=== PATIENT | female | born 1995 | race Hispanic/Latino ===

== ENCOUNTER 2020-01-24 18:30 | Observation (INO) | payer BC, MEDICAID ==
[~2020-01-24] VITALS: Ht 154.9 cm; Wt 82.6 kg
[2020-01-24 19:37] LABS: APPEARANCE,URINE Cloudy (CLEAR); BILIRUBIN,URINE Negative (NEGATIVE); COLOR,URINE Yellow (YELLOW); GLUCOSE, URINE (UA) Negative (NEGATIVE); KETONES,URINE Negative (NEGATIVE); LEUKOCYTE ESTERASE ,URINE Small (NEGATIVE); NITRATE,URINE Negative (NEGATIVE); OCCULT BLOOD,URINE Negative (NEGATIVE); PH,URINE 6.5 (5.0-8.0); PROTEIN,URINE Negative (NEGATIVE)
[2020-01-24 19:45] LABS: AMPHET/METH SCREEN,URINE NEGATIVE (NEGATIVE); BARBITURATE SCREEN, URINE NEGATIVE (NEGATIVE); BENZODIAZEPINES SCREEN,URINE NEGATIVE (NEGATIVE); CANNABINOID SCREEN,URINE NEGATIVE (NEGATIVE); COCAINE SCREEN,URINE NEGATIVE (NEGATIVE); OPIATE SCREEN,URINE NEGATIVE (NEGATIVE); PHENCYCLIDINE SCREEN,URINE NEGATIVE (NEGATIVE)
[2020-01-24 19:49] LABS: BACTERIA,URINE Few /HPF (None Seen); RBC,URINE 0-1 /HPF (0-1); SQUAMOUS EPITHELIAL CELL,UR Few /HPF (0-2)
[2020-01-24 19:51] LABS: AMORPHOUS SEDIMENT,UR Few /LPF (None Seen)
[2020-01-24 19:54] VITALS: BP 132/84
[2020-01-24] MEDS ORDERED: LACTATED RINGERS 1000ML IV PRN (20:00)
== END 2020-01-24 21:05 | disposition home or self-care (01) ==
LOC: EDH 18:30 → LDH 18:40
DX: O42.913 Preterm premature rupture of membranes, unspecified as to length of time between rupture and onset of labor, third trimester (principal); Z3A.35 35 weeks gestation of pregnancy
CPT/HCPCS: 80305; 81001; G0378 ×2; 96360

== ENCOUNTER 2020-02-18 04:53 | Inpatient (IN) | payer BC, MEDICAID ==
[~2020-02-18] VITALS: Ht 154.9 cm; Wt 85.3 kg
[2020-02-18] MEDS ORDERED: LACTATED RINGERS 1000ML IV SCH (05:15)
[2020-02-18 05:24] LABS: BILIRUBIN,URINE Negative (NEGATIVE); COLOR,URINE Yellow (YELLOW); GLUCOSE, URINE (UA) Negative (NEGATIVE); KETONES,URINE Negative (NEGATIVE); LEUKOCYTE ESTERASE ,URINE Moderate (NEGATIVE); NITRATE,URINE Negative (NEGATIVE); OCCULT BLOOD,URINE Negative (NEGATIVE); PH,URINE 7.5 (5.0-8.0); PROTEIN,URINE Trace mg/dL (NEGATIVE)
[2020-02-18 05:25] LABS: APPEARANCE,URINE CLOUDY (CLEAR)
[2020-02-18 05:31] LABS: BACTERIA,URINE Few /HPF (None Seen); RBC,URINE None Seen /HPF (0-1); SQUAMOUS EPITHELIAL CELL,UR Moderate /HPF (0-2)
[2020-02-18] MEDS ORDERED: LACTATED RINGERS 1000ML 1,000 ML IV PRN (05:36)
[2020-02-18 05:45] LABS: HEMATOCRIT 33.9 % (36-48); MEAN CORPUSCULAR HEMOGLOBIN 23.8 pg (27.0-33.0); MEAN CORPUSCULAR VOLUME 76.7 fL (79-99); PLATELET COUNT (AUTO) 440 K/uL (130-400); RED BLOOD CELL COUNT(AUTO) 4.42 MIL/uL (4.00-5.50); RED CELL DISTRIBUTION WIDTH 15.2 % (11.0-15.5); WHITE BLOOD COUNT (AUTO) 11.4 K/uL (4.8-10.8)
[2020-02-18] MEDS ORDERED: MEPERIDINE-PF 50 MG/ML SYG IVP ONE (05:45)
[2020-02-18] MEDS ORDERED: ROPIVACAINE 0.2% 100ML VIAL 100 ML EP SCH (05:45)
[2020-02-18] MEDS ORDERED: OXYTOCIN-LR 20 UNITS/1000 ML 1,000 ML IV SCH ×2 (05:45→18:45)
[2020-02-18] MEDS ORDERED: LACTATED RINGERS 500 ML 500 ML IV PRN (05:45)
[2020-02-18] MEDS ORDERED: NALOXONE HCL 0.4 MG/1 ML ML IV PRN (05:45)
[2020-02-18] MEDS ORDERED: EPHEDRINE SULFATE 50 MG/ML AMPULE IVP PRN (05:45)
[2020-02-18] MEDS ORDERED: PROMETHAZINE HCL 25 MG/ML 1ML AMPULE IM SCH (05:45)
[2020-02-18 06:48] LABS: AMPHET/METH SCREEN,URINE NEGATIVE (NEGATIVE); BARBITURATE SCREEN, URINE NEGATIVE (NEGATIVE); BENZODIAZEPINES SCREEN,URINE NEGATIVE (NEGATIVE); CANNABINOID SCREEN,URINE NEGATIVE (NEGATIVE); COCAINE SCREEN,URINE NEGATIVE (NEGATIVE); OPIATE SCREEN,URINE NEGATIVE (NEGATIVE); PHENCYCLIDINE SCREEN,URINE NEGATIVE (NEGATIVE)
[2020-02-18] MEDS ORDERED: PROMETHAZINE HCL 25 MG/ML 1ML AMPULE IM PRN (09:00)
[2020-02-18] MEDS ORDERED: MEPERIDINE-PF 50 MG/ML SYG IVP PRN (09:00)
[2020-02-18 12:27] LABS: RAPID PLASMA REAGIN NONREACTIVE (NONREACTIVE)
[2020-02-18] MEDS ORDERED: OXYTOCIN 10 USP UNITS/ML 20 UNIT in LACTATED RINGERS 1000ML 1,000 ML IV SCH (14:15)
[2020-02-18] MEDS ORDERED: METHYLERGONOVINE MALEATE 0.2 MG/1 ML ML ONE (18:20)
[2020-02-18] MEDS ORDERED: MISOPROSTOL 200 MCG TABLET ONE (18:21)
[2020-02-18] MEDS ORDERED: BENZOCAINE/LANOLIN/ALOE VERA 60 ML AEROSOL TP PRN (18:45)
[2020-02-18] MEDS ORDERED: DIPH,PERTUSS(ACELL),TET VAC/PF 0.5 ML VIAL IM PRN (18:45)
[2020-02-18] MEDS ORDERED: ACETAMINOPHEN-CODEINE 300/30MG TAB PO PRN (18:45)
[2020-02-18] MEDS ORDERED: ACETAMINOPHEN 325 MG TAB PO PRN (18:45)
[2020-02-18] MEDS ORDERED: MEASLES/MUMPS/RUBELLA VACCINE, LIVE 0.5 ML/VIAL SQ PRN (18:45)
[2020-02-18] MEDS ORDERED: LANOLIN 30GM OINTMENT TP PRN (18:45)
[2020-02-18] MEDS: DOCUSATE SODIUM 100 MG CAP PO SCH ×2 (20:49→21:36)
[2020-02-18] MEDS: CLINDAMYCIN 900 MG/D5% WATER 50 ML IV SCH (20:50)
[2020-02-18 21:10] VITALS: BP 143/75
[2020-02-18] MEDS ORDERED: PREN-66 PO (21:52)
[2020-02-18] MEDS: WITCH HAZEL 1 PAD TP PRN (22:05)
[2020-02-18] MEDS: GENTAMICIN 120 MG IN 100ML NS 100 ML IV SCH (22:06)
[2020-02-18 23:44] VITALS: BP 141/73
[2020-02-19 03:42] VITALS: BP 125/80
[2020-02-19] MEDS: CLINDAMYCIN 900 MG/D5% WATER 50 ML IV SCH ×3 (05:07→20:31)
[2020-02-19] MEDS: GENTAMICIN 120 MG IN 100ML NS 100 ML IV SCH ×3 (05:51→21:50)
[2020-02-19] MEDS: IBUPROFEN 600 MG TABLET PO PRN ×2 (05:58→18:55)
[2020-02-19 06:43] LABS: CREATININE 0.8 mg/dL (0.5-1.5)
[2020-02-19 07:09] VITALS: BP 107/56
[2020-02-19] MEDS: DOCUSATE SODIUM 100 MG CAP PO SCH ×2 (09:11→20:31)
[2020-02-19 09:12] LABS: HEPATITIS Bs ANTIGEN SCREEN P Negative (Negative)
--- NOTE | 2020-02-19 10:33 | NUR ---
[facility] met with pt who states she and noemí Rubalcava [phone], live with her parents (mother Richa Dudley). This is first child for couple daughter Deyanira Rubalcava. Pt is independent, does not work, has [place], and [place]. FOB works at [employer] and is independent as well. Couple has basic items for baby and a car seat. They have selected a internal medicine veterinary technician in [place] to follow baby after dc. Pt reports she found out she was at 21 weeks because she had no signs or symptoms or and was told she would have trouble conceiving because she had PCOD- polycystic Ovary Disease. Pt came to ER with abdominal pain and found out she was . Pt started care right after. Pt denies any hx of abuse, substance abuse, domestic violence, legal or CPS issues
[2020-02-19 11:19] VITALS: BP 119/68
[2020-02-19] MEDS ORDERED: GENTAMICIN 80 MG/NS 100 ML PB 0 ML IV ONE (13:52)
[2020-02-19 16:43] VITALS: BP 122/75
[2020-02-19 19:12] VITALS: BP 122/68
[2020-02-19 23:10] VITALS: BP 125/68
[2020-02-20 03:53] VITALS: BP 122/68
[2020-02-20] MEDS: IBUPROFEN 600 MG TABLET PO PRN ×2 (04:19→09:24)
[2020-02-20] MEDS: CLINDAMYCIN 900 MG/D5% WATER 50 ML IV SCH ×2 (04:31→12:43)
[2020-02-20] MEDS: GENTAMICIN 120 MG IN 100ML NS 100 ML IV SCH (06:03)
[2020-02-20 07:06] LABS: BASOPHILS % (AUTO) 0.4 % (0.0-5.0); EOSINOPHILS % (AUTO) 1.7 % (0.0-8.0); HEMATOCRIT 26.8 % (36-48); LYMPHOCYTES % (AUTO) 25.1 % (21.0-51.0); MEAN CORPUSCULAR HEMOGLOBIN 23.7 pg (27.0-33.0); MEAN CORPUSCULAR VOLUME 76.6 fL (79-99); MONOCYTES % (AUTO) 6.4 % (3.0-13.0); NEUTROPHILS % (AUTO) 65.5 % (40.0-77.0); PLATELET COUNT (AUTO) 331 K/uL (130-400); RED CELL DISTRIBUTION WIDTH 15.8 % (11.0-15.5); WHITE BLOOD COUNT (AUTO) 13.7 K/uL (4.8-10.8)
[2020-02-20 07:46] VITALS: BP 109/83
[2020-02-20] MEDS: WITCH HAZEL 1 PAD TP PRN (08:30)
[2020-02-20] MEDS: DOCUSATE SODIUM 100 MG CAP PO SCH (09:23)
[2020-02-20 11:30] VITALS: BP 130/78
--- NOTE | 2020-02-20 13:30 | NUR ---
DR. MORGAN ROUNDED ON PATIENT AND DISCHARGED PATIENT TO HOME. PIV PATENT AND INFUSING LAST DOSE OF CLEOCIN. IV TO BE REMOVED AFTER COMPLETION.
[2020-02-20 16:13] VITALS: BP 136/79
--- NOTE | 2020-02-20 17:05 | NUR ---
PATIENT WAS TAKEN VIA W/C HOLDING BABY IN ARMS TO FAMILYT VEHICLE. PATIENT IS STABLE AND DENIES PAIN.
== END 2020-02-20 17:05 | disposition home or self-care (01) | DRG 807 ==
LOC: EDH 04:53 → LDH 04:54 → OBSVTOIN 04:54 → WSH 21:16
PROC: 10907ZC Drainage of Amniotic Fluid, Therapeutic from Products of Conception, Via Natural or Artificial Opening (ICD-10-PCS; principal; 2020-02-18)
PROC: 10E0XZZ Delivery of Products of Conception, External Approach (ICD-10-PCS; 2020-02-18)
PROC: 0HQ9XZZ Repair Perineum Skin, External Approach (ICD-10-PCS; 2020-02-18)
PROC: 3E0R3BZ Introduction of Anesthetic Agent into Spinal Canal, Percutaneous Approach (ICD-10-PCS; 2020-02-18)
PROC: 00HU33Z Insertion of Infusion Device into Spinal Canal, Percutaneous Approach (ICD-10-PCS; 2020-02-18)
PROC: 3E0234Z Introduction of Serum, Toxoid and Vaccine into Muscle, Percutaneous Approach (ICD-10-PCS; 2020-02-18)
PROC: 3E0134Z Introduction of Serum, Toxoid and Vaccine into Subcutaneous Tissue, Percutaneous Approach (ICD-10-PCS; 2020-02-18)
PROC: 3E0P7VZ Introduction of Hormone into Female Reproductive, Via Natural or Artificial Opening (ICD-10-PCS; 2020-02-18)
DX: O62.2 Other uterine inertia (principal); Z37.0 Single live birth; O70.0 First degree perineal laceration during delivery; Z3A.39 39 weeks gestation of pregnancy; Z23 Encounter for immunization
CPT/HCPCS: 36415; 80170; 80305; 81001; 82565; 85025; 85027; 86592; 86701; 86850; 86900; 86901; 87088; 87340; 87390; 90715; G0378; J1580; J2175; J2210; J2550; J2590; J2795; J3490

== ENCOUNTER 2021-02-27 15:42 | Observation (INO) | payer BC, MEDICAID ==
[~2021-02-27] VITALS: Ht 152.4 cm; Wt 81.6 kg
[~2021-02-27 15:42] MED LIST: PREN-66 PO
[2021-02-27 17:22] LABS: APPEARANCE,URINE Cloudy (CLEAR); BILIRUBIN,URINE Negative (NEGATIVE); COLOR,URINE Yellow (YELLOW); GLUCOSE, URINE (UA) Negative (NEGATIVE); KETONES,URINE Negative (NEGATIVE); LEUKOCYTE ESTERASE ,URINE Trace (NEGATIVE); NITRATE,URINE Negative (NEGATIVE); OCCULT BLOOD,URINE Negative (NEGATIVE); PH,URINE 6.5 (5.0-8.0); PROTEIN,URINE Negative (NEGATIVE)
[2021-02-27 17:29] LABS: RBC,URINE 0-1 /HPF (0-1); WBC,URINE 0-1 /HPF (0-1)
[2021-02-27 17:30] LABS: AMORPHOUS SEDIMENT,UR Rare /LPF (None Seen); BACTERIA,URINE Few /HPF (None Seen); MUCUS,URINE Rare LPF (None Seen); SQUAMOUS EPITHELIAL CELL,UR Few /HPF (0-2)
[2021-05-05] MEDS ORDERED: PNV#1COM14 PO (19:39)
[2021-05-09] MEDS ORDERED: CLIN-141 PO (21:01)
== END 2021-02-27 17:57 | disposition home or self-care (01) ==
LOC: EDH 15:42 → LDH 15:43
PROVIDERS: ADMIT Specialist; ATTEND Specialist
DX: O42.913 Preterm premature rupture of membranes, unspecified as to length of time between rupture and onset of labor, third trimester (principal); Z3A.28 28 weeks gestation of pregnancy
CPT/HCPCS: 59025; 76815; 81001; 99283; G0378 ×2

== ENCOUNTER 2021-04-28 10:29 | Observation (INO) | payer BC, MEDICAID ==
[~2021-04-28] VITALS: Ht 162.6 cm; Wt 83.5 kg
[2021-04-28 10:31] VITALS: BP 119/78
[2021-04-28 11:11] LABS: APPEARANCE,URINE Cloudy (CLEAR); BILIRUBIN,URINE Small (NEGATIVE); COLOR,URINE Dark Yellow (YELLOW); GLUCOSE, URINE (UA) Negative (NEGATIVE); KETONES,URINE 40 mg/dL (NEGATIVE); LEUKOCYTE ESTERASE ,URINE Small (NEGATIVE); NITRATE,URINE Negative (NEGATIVE); OCCULT BLOOD,URINE Negative (NEGATIVE); PROTEIN,URINE POS 1+ mg/dL (NEGATIVE)
[2021-04-28 11:43] LABS: BACTERIA,URINE Rare /HPF (None Seen); RBC,URINE 0-1 /HPF (0-1)
[2021-04-28 11:44] LABS: SQUAMOUS EPITHELIAL CELL,UR Moderate /HPF (0-2)
[2021-04-28 11:46] VITALS: BP 125/77
[2021-04-28] MEDS ORDERED: LACTATED RINGERS 1000ML 1,000 ML IV PRN (12:00)
[2021-05-05] MEDS ORDERED: PNV#1COM14 PO (19:39)
== END 2021-04-28 12:50 | disposition home or self-care (01) ==
LOC: EDH 10:29 → LDH 10:30
PROVIDERS: ADMIT Specialist; ATTEND Specialist
DX: O62.9 Abnormality of forces of labor, unspecified (principal); Z3A.37 37 weeks gestation of pregnancy
CPT/HCPCS: 81001; 96360; G0378 ×2; J7120

== ENCOUNTER 2021-05-09 14:00 | Emergency (ER) | payer BC, MEDICAID ==
[~2021-05-09] VITALS: Ht 154.9 cm; Wt 80.7 kg
[~2021-05-09 14:00] MED LIST changes: +PNV#1COM14 PO
[2021-05-09 14:01] VITALS: BP 139/82
[2021-05-09] MEDS ORDERED: MORPHINE 4 MG SYG IVP ONE (17:00)
[2021-05-09] MEDS ORDERED: ONDANSETRON 4MG INJ IVP ONE (17:00)
[2021-05-09] MEDS ORDERED: 0.9%NACL 1000ML 1,000 ML IV ONE (17:00)
[2021-05-09] MEDS ORDERED: ACETAMINOPHEN 325 MG TAB PO ONE (17:00)
[2021-05-09] MEDS ORDERED: ZOSYN 3.375GM +NS 50ML IV ONE (17:00)
[2021-05-09 17:01] VITALS: BP 134/82
[2021-05-09] MEDS ORDERED: ZOSYN 3.375GM +NS 50ML IV SCH (17:30)
[2021-05-09] MEDS ORDERED: 0.9%NACL 50ML 50 ML IV SCH (17:30)
[2021-05-09] MEDS ORDERED: IOHEXOL-350 75 ML VIAL IV ONE (17:32)
[2021-05-09 17:41] LABS: BASOPHILS % (AUTO) 0.3 % (0.0-5.0); EOSINOPHILS % (AUTO) 2.1 % (0.0-8.0); HEMATOCRIT 32.5 % (36-48); LYMPHOCYTES % (AUTO) 11.4 % (21.0-51.0); MEAN CORPUSCULAR HEMOGLOBIN 21.8 pg (27.0-33.0); MEAN CORPUSCULAR HGB CONC 30.2 g/dL (32.0-36.0); MEAN CORPUSCULAR VOLUME 72.2 fL (79-99); MONOCYTES % (AUTO) 3.2 % (3.0-13.0); NEUTROPHILS % (AUTO) 82.3 % (40.0-77.0); PLATELET COUNT (AUTO) 510 K/uL (130-400); RED CELL DISTRIBUTION WIDTH 17.3 % (11.0-15.5); WHITE BLOOD COUNT (AUTO) 15.8 K/uL (4.8-10.8)
[2021-05-09 18:01] LABS: CREATININE 0.6 mg/dL (0.5-1.5); POTASSIUM 3.8 mmol/L (3.5-5.1)
[2021-05-09 18:08] LABS: ALBUMIN 2.9 g/dL (3.5-5.0); BILIRUBIN,TOTAL 0.3 mg/dL (0.2-1.0); TOTAL PROTEIN, SERUM 7.7 g/dL (6.0-8.3)
[2021-05-09 18:55] VITALS: BP 140/86
[2021-05-09 19:44] VITALS: BP 142/86
[2021-05-09] MEDS ORDERED: KETOROLAC 30MG VIAL (30MG/ML) IV ONE (20:30)
[2021-05-09 20:55] LABS: APPEARANCE,URINE Clear (CLEAR); BILIRUBIN,URINE Negative (NEGATIVE); COLOR,URINE Yellow (YELLOW); GLUCOSE, URINE (UA) Negative (NEGATIVE); KETONES,URINE Negative (NEGATIVE); LEUKOCYTE ESTERASE ,URINE Moderate (NEGATIVE); NITRATE,URINE Negative (NEGATIVE); OCCULT BLOOD,URINE Large (NEGATIVE); PH,URINE 6.5 (5.0-8.0); PROTEIN,URINE Trace mg/dL (NEGATIVE)
[2021-05-09 20:59] LABS: HCG,QUAL RESULT POSITIVE (NEGATIVE)
[2021-05-09] MEDS ORDERED: IBUP-2070 PO (21:01)
[2021-05-09] MEDS ORDERED: CEPH500C2 PO (21:01)
[2021-05-09] MEDS ORDERED: CLIN300C10 PO (21:01)
[2021-05-09] MEDS ORDERED: ACET-3194 PO (21:01)
[2021-05-09 21:08] VITALS: BP 139/79
[2021-05-09 21:08] LABS: BACTERIA,URINE Rare /HPF (None Seen)
[2021-05-09 21:09] LABS: SQUAMOUS EPITHELIAL CELL,UR Few /HPF (0-2)
== END 2021-05-09 21:18 | disposition home or self-care (01) ==
LOC: EDH 14:00
DX: N39.0 Urinary tract infection, site not specified (principal); N71.9 Inflammatory disease of uterus, unspecified; Z79.1 Long term (current) use of non-steroidal anti-inflammatories (NSAID); Z79.899 Other long term (current) drug therapy; Z88.1 Allergy status to other antibiotic agents; Z88.2 Allergy status to sulfonamides
CPT/HCPCS: 36415; 74177; 76856; 80053; 81001; 81025; 83690; 84702; 85025; 87040 ×2; 87088; 96365; 96375; 99285; J2543; Q9967; J2270; J2405

== ENCOUNTER 2022-07-31 09:55 | Observation (INO) | payer MEDICAID ==
[~2022-07-31 09:55] MED LIST changes: +ACET-3194 PO; +CEPH500C2 PO; +CLIN-141 PO; +IBUP-2070 PO
[2022-07-31 11:13] LABS: APPEARANCE,URINE CLEAR (CLEAR); BASOPHILS % (AUTO) 0.3 % (0.0-5.0); BILIRUBIN,URINE NEGATIVE (NEGATIVE); COLOR,URINE YELLOW (YELLOW); EOSINOPHILS % (AUTO) 1.2 % (0.0-8.0); GLUCOSE, URINE (UA) NEGATIVE (NEGATIVE); HEMATOCRIT 34.5 % (36-48); KETONES,URINE NEGATIVE (NEGATIVE); LEUKOCYTE ESTERASE ,URINE 25 Leu/uL (NEGATIVE); LYMPHOCYTES % (AUTO) 19.5 % (21.0-51.0); MEAN CORPUSCULAR HEMOGLOBIN 25.1 pg (27.0-33.0); MEAN CORPUSCULAR HGB CONC 31.9 g/dL (32.0-36.0); MEAN CORPUSCULAR VOLUME 78.6 fL (79-99); MONOCYTES % (AUTO) 5.3 % (3.0-13.0); NEUTROPHILS % (AUTO) 72.2 % (40.0-77.0); NITRATE,URINE NEGATIVE (NEGATIVE); OCCULT BLOOD,URINE NEGATIVE (NEGATIVE); PLATELET COUNT (AUTO) 362 K/uL (130-400); PROTEIN,URINE NEGATIVE (NEGATIVE); RED BLOOD CELL COUNT(AUTO) 4.39 MIL/uL (4.00-5.50); RED CELL DISTRIBUTION WIDTH 17.3 % (11.0-15.5); UROBILINOGEN,URINE 0.2 mg/dL (0.2-1.0); WHITE BLOOD COUNT (AUTO) 10.1 K/uL (4.8-10.8)
[2022-07-31 11:14] LABS: CREATININE 0.6 mg/dL (0.5-1.5); POTASSIUM 3.7 mmol/L (3.5-5.1)
[2022-07-31 11:19] LABS: ALBUMIN 2.8 g/dL (3.5-5.0); TOTAL PROTEIN, SERUM 7.4 g/dL (6.0-8.3); URIC ACID 3.1 mg/dL (2.6-7.2)
[2022-07-31 11:42] LABS: BACTERIA,URINE RARE /HPF (None Seen); MUCUS,URINE RARE LPF (None Seen); RBC,URINE 0-1 /HPF (0-1); SQUAMOUS EPITHELIAL CELL,UR RARE /HPF (0-2); WBC,URINE 0-1 /HPF (0-1)
[2022-07-31 13:43] LABS: INR 0.93 (0.85-1.15); PROTHROMBIN TIME 9.6 SEC (9.6-11.6)
[2022-07-31 13:45] LABS: PARTIAL THROMBOPLASTIN TIME 26.8 SEC (26.3-35.5)
== END 2022-07-31 12:10 | disposition home or self-care (01) ==
LOC: LDH 09:55
PROVIDERS: ADMIT Obstetrics & Gynecology; ATTEND Obstetrics & Gynecology
DX: O13.3 Gestational [pregnancy-induced] hypertension without significant proteinuria, third trimester (principal); Z3A.36 36 weeks gestation of pregnancy
CPT/HCPCS: 84550; 80053; 85025; 85384; 85610; 85730; 81001; 36415; G0378 ×2; G0379

== ENCOUNTER 2022-10-01 05:50 | Day surgery (SDC) | payer MEDICAID ==
[2022-09-28 11:30] LABS: BASOPHILS % (AUTO) 0.4 % (0.0-5.0); HEMATOCRIT 38.6 % (36-48); LYMPHOCYTES % (AUTO) 30.5 % (21.0-51.0); MEAN CORPUSCULAR HEMOGLOBIN 25.8 pg (27.0-33.0); MEAN CORPUSCULAR HGB CONC 32.4 g/dL (32.0-36.0); MEAN CORPUSCULAR VOLUME 79.8 fL (79-99); MONOCYTES % (AUTO) 5.5 % (3.0-13.0); NEUTROPHILS % (AUTO) 59.1 % (40.0-77.0); PLATELET COUNT (AUTO) 334 K/uL (130-400); RED BLOOD CELL COUNT(AUTO) 4.84 MIL/uL (4.00-5.50); RED CELL DISTRIBUTION WIDTH 15.9 % (11.0-15.5)
[2022-09-28 12:04] VITALS: BP 138/79
[~2022-10-01] VITALS: Ht 154.9 cm; Wt 79.4 kg
[2022-10-01] VITALS (15 sets, daily range): BP systolic 131–157; BP diastolic 74–94
[~2022-10-01 05:50] MED LIST changes: -ACET-3194 PO; +BUPIVACAINE/PF 0.5% 30ML VIAL ONE; -CEPH500C2 PO; -CLIN-141 PO; +FERS325 PO; -IBUP-2070 PO; -PNV#1COM14 PO; +PREN-226 PO; -PREN-66 PO
[2022-10-01] MEDS ORDERED: LACTATED RINGERS 1000ML 1,000 ML IV ONE (06:10)
[2022-10-01] MEDS ORDERED: CEFAZOLIN SODIUM 2 GM VIAL ONE (06:11)
[2022-10-01] MEDS ORDERED: CALDOLOR 800MG+NS 250ML 250 ML IV ONE (06:12)
[2022-10-01] MEDS ORDERED: SUCCINYLCHOLINE CHLORIDE 20 MG/ML 10 ML VIAL ONE (07:25)
[2022-10-01] MEDS ORDERED: MIDAZOLAM HCL 1 MG/ML 2ML VIAL ONE (07:26)
[2022-10-01] MEDS ORDERED: PROPOFOL 10 MG/ML 20ML VIAL IV ONE (07:26)
[2022-10-01] MEDS ORDERED: FENTANYL CITRATE PF 50 MCG/1 ML 2ML VIAL ONE (07:27)
[2022-10-01] MEDS ORDERED: CEFAZOLIN SODIUM 2 GM VIAL IVPB ONE (07:30)
[2022-10-01] MEDS ORDERED: ONDANSETRON 4MG INJ ONE (07:37)
[2022-10-01] MEDS ORDERED: KETOROLAC 30MG VIAL (30MG/ML) ONE (07:38)
[2022-10-01] MEDS ORDERED: BUPIVACAINE/PF 0.5% 30ML VIAL INJ ONE (07:49)
[2022-10-01] MEDS ORDERED: CALDOLOR 800MG+NS 250ML 250 ML IV PRN (08:00)
[2022-10-01] MEDS ORDERED: CEFAZOLIN SODIUM 2 GM VIAL IVPB PRN (08:00)
[2022-10-01] MEDS ORDERED: IPRATROPIUM 0.5 MG/2.5 ML INH IH SCH (08:30)
[2022-10-01] MEDS ORDERED: IPRATROPIUM 0.5 MG/2.5 ML INH IH ONE (08:30)
[2022-10-01] MEDS ORDERED: MEPERIDINE-PF 25 MG/ML SYG ONE ×2 (08:30→08:40)
[2022-10-01] MEDS ORDERED: ALBUTEROL 0.083% 2.5 MG/3 ML INH IH ONE (08:30)
[2022-10-01] MEDS ORDERED: ALBUTEROL 0.083% 2.5 MG/3 ML INH IH SCH (09:00)
== END 2022-10-01 10:30 | disposition home or self-care (01) ==
LOC: DAH 05:50
PROVIDERS: ATTEND Obstetrics & Gynecology
DX: Z30.2 Encounter for sterilization (principal); Z20.822 Contact with and (suspected) exposure to COVID-19; N85.4 Malposition of uterus; Z79.899 Other long term (current) drug therapy; Z88.3 Allergy status to other anti-infective agents; Z88.1 Allergy status to other antibiotic agents; Z80.0 Family history of malignant neoplasm of digestive organs; Z80.59 Family history of malignant neoplasm of other urinary tract organ
CPT/HCPCS: 84703 ×2; 85025; 86850 ×2; 86900 ×2; 86901 ×2; 87426; 36415 ×2; 58670; 94640; J7120; J3010; J0330; J2250; J3490; J2405; J1885; S0020 ×2; J2175 ×2; J1741; J0690 ×2; C1769 ×2; A4351; G0168; A4649; A4215; A4223; A4222; A4221; A4663; J2704